=== PATIENT | female | born 1940 | race African-American/Black ===

== ENCOUNTER → 2020-06-15 | Outpatient (CLI) | payer OTHER ==
[2016-02-14 00:47] VITALS: BP 190/87
--- NOTE | 2020-06-16 15:54 | RAD ---
DATE: 06/15/2020 3:30 PM EXAM: MAMMO KHUSHBOO SCREEN RT HISTORY: Screening . Personal history left mastectomy for breast cancer COMPARISON: 04/30/2019, 03/27/2016 CC and MLO views of the right breast were performed. Right breast tomosynthesis was performed in CC and MLO projections. This study was interpreted with the benefit of Computerized Aided Detection (CAD). FINDINGS: Breast Density: SCATTERED The breast parenchyma shows scattered fibroglandular densities. Breast parenchyma level B No suspicious masses, microcalcifications or architectural distortion is present to suggest malignancy. IMPRESSION: No mammographic evidence of malignancy. BI-RADS CATEGORY: 1 NEGATIVE RECOMMENDED FOLLOW-UP: 12M 12 MONTH FOLLOW-UP Annual screening mammography is recommended, unless clinically indicated sooner based on symptoms or change in physical exam. PQRS compliance statement: Patient information was entered into a reminder system with a target due date for the next mammogram. Mammography is a sensitive method for finding small breast cancers, but it does not detect them all and is not a substitute for careful clinical examination. A negative mammogram does not negate a clinically suspicious finding and should not result in delay in biopsying a clinically suspicious abnormality. "Our facility is accredited by the [employer] Mamm[employer]."
== END ==
LOC: MAMMO 15:21
PROVIDERS: ATTEND Internal Medicine Hematology & Oncology
DX: Z12.31 Encounter for screening mammogram for malignant neoplasm of breast (principal); Z90.12 Acquired absence of left breast and nipple
CPT/HCPCS: 77061

== ENCOUNTER → 2020-12-01 | Outpatient (CLI) | payer OTHER ==
[2016-02-14 00:47] VITALS: BP 190/87
--- NOTE | 2020-12-02 07:14 | KCIC ---
INDICATION: Reason: CHF, abnormal blood work. / Spl. Instructions: / History: COMPARISON: None. FINDINGS: 2 view of chest obtained. Degenerative changes of the right shoulder. Calcific atherosclerosis. No definite focal airspace cons olidation or edema. Degenerative changes of spine. IMPRESSION: * No focal airspace consolidation Electronically signed by: Pankaj Frances MD (12/02/2020 7:11 AM) [id number]
== END ==
LOC: KCIC 13:57
PROVIDERS: ATTEND Specialist
DX: I50.9 Heart failure, unspecified (principal); R79.9 Abnormal finding of blood chemistry, unspecified; M19.011 Primary osteoarthritis, right shoulder
CPT/HCPCS: 71046

== ENCOUNTER → 2021-06-30 | Outpatient (CLI) | payer OTHER ==
[2016-02-14 00:47] VITALS: BP 190/87
--- NOTE | 2021-06-30 13:38 | KCIC ---
History: 81-year-old a symptomatically the patient presents for screening right mammogram. Personal history of left breast cancer status post mastectomy. PROCEDURE: 3-D tomosynthesis was performed of the right breast. 2-D C-view craniocaudal and mediola teral oblique digital mammograms were also generated. The images were also evaluated with computer-a ided detection and the CAD results were analyzed. Previous: Right mammogram from 06/29/2020 and priors. FINDINGS: Density level B: There are scattered fibroglandular densities. There are no suspicious masses, suspic ious microcalcifications or areas of architectural distortion.Benign stable vascular calcifications a re seen in the right breast IMPRESSION: Benign mammogram. Patient information was entered into the DoYouRemember reminder system with a target due date for the next screening mammogram . Routine annual screening mammogram in one year ad vised. BI-RADS Category 2: Benign. A mammogram does not have 100% sensitivity and therefore a negative imaging study should not delay fu rther work up of a suspicious abnormality. PQRS compliance statement: Patient information was entered into the DoYouRemember reminder system with a ta rget due date for the next screening mammogram . Routine annual screening mammogram in one year advis ed. "Our facility is accredited by the [employer] Mammography [employer]." Electronically signed by: Nolvia Bennett MD (06/30/2021 1:36 PM) [id number]
== END ==
LOC: KCIC MAMMO 12:26
PROVIDERS: ATTEND Internal Medicine Hematology & Oncology
DX: Z12.31 Encounter for screening mammogram for malignant neoplasm of breast (principal)
CPT/HCPCS: 77063; 77067

== ENCOUNTER → 2021-06-30 | Outpatient (CLI) | payer OTHER ==
[2016-02-14 00:47] VITALS: BP 190/87
--- NOTE | 2021-06-30 13:19 | KCIC ---
EXAM: DUAL ENERGY X-RAY ABSORPTIOMETRY (DEXA). HISTORY: Postmenopausal screening. FINDINGS: The lowest measured T-score is -1.2 in the left hip, based on a bone mineral density of 0.7 98 g/cm^2. Refer to the worksheets for full detail. No comparison examinations are available. IMPRESSION: 1. Low bone mass. Bone mineral density yields a T-score between -1.0 and -2.5. Fracture risk is incre ased. 2. FRAX report: Not calculated. METHODOLOGY: Dual energy x-ray absorptiometry was performed to measure bone mineral density. The foll owing analysis is based on the 2019 Official Positions of the International Society for Clinical Dens itometry: Measurements of the hips and the average of L1-L4 are preferred. When the spine and/or hip cannot be feasibly measured or interpreted, or in the setting of hyperparathyroidism, distal radial bone minera l density may be measured. The lumbar spine T-score is based on the average bone mineral density of L1-L4. In the setting of art ifact or anatomic abnormality, some lumbar levels may be excluded, and the remaining levels used for calculation. A single lumbar level is not used for diagnosis, and if only a single level is available for assessment, another anatomic site will be used to assign a diagnosis. The hip T-score is based on the bone mineral density measurement of the femoral neck or total proxima l femur of either side, whichever is lowest. Bilateral mean values are not used for diagnosis. The forearm T-score is derived from 33% of the distal radius of the nondominant forearm. Electronically signed by: Shirley Vivas MD (06/30/2021 1:17 PM) [id number]
== END ==
LOC: KCIC DEXA 12:20
PROVIDERS: ATTEND Pediatrics
DX: M81.0 Age-related osteoporosis without current pathological fracture (principal)
CPT/HCPCS: 77080